=== PATIENT | female | born 1995 | race Caucasian/White ===

== ENCOUNTER 2017-05-27 16:26 | Emergency (ER) | payer BC ==
[2017-05-27 17:23] VITALS: BP 118/69
--- NOTE | 2017-05-27 17:57 | UC ---
HPI Wound/Suture Re-check - HPI Summary HPI Summary: 21 YEAR OLD FEMALE PRESENTS FOR STITCHES BETWEEN LEFT 4/5 TOE REMOVAL. LACERATION IS C/D/I (10 DAYS) - History Of Current Complaint Chief Complaint: UCWounds Stated Complaint: STITCHES REMOVAL Time Seen by Provider: 05/27/17 17:56 Hx Obtained From: Patient Hx Last Menstrual Period: 05/21/17 Onset/Duration: Lasting Days Severity: Mild Pain Scale Used: 0-10 Numeric - 0 - Allergies/Home Medications Allergies/Adverse Reactions: Allergies Allergy/AdvReac Type Severity Reaction Status Date / Time No Known Allergies Allergy Verified 05/27/17 17:23 Home Medications: Home Medications Acetaminophen [Acetaminophen Extra Stren] 1,000 mg PO Q6H PRN 05/27/17 [History Confirmed 05/27/17] PMH/Surg Hx/FS Hx/Imm Hx Previously Healthy: Yes - Surgical History Surgical History: None - Family History Known Family History: Negative: Blood Disorder - Social History Alcohol Use: Occasionally Substance Use Type: None Smoking Status (MU): Never Smoked Tobacco - Immunization History Most Recent Influenza Vaccination: none 2016 Review of Systems Constitutional: Negative Skin: Other - LEFT 4/5TH TOE WEB LACERATION WITH SUTURES Eyes: Negative ENT: Negative Respiratory: Negative Cardiovascular: Negative Gastrointestinal: Negative Genitourinary: Negative Motor: Negative Neurovascular: Negative Musculoskeletal: Negative Neurological: Negative Psychological: Negative All Other Systems Reviewed And Are Negative: Yes Physical Exam Triage Information Reviewed: Yes Vital Signs: Initial Vital Signs Temp 36.9 C 05/27/17 17:17 Pulse 60 05/27/17 17:17 Resp 18 05/27/17 17:17 BP 118/69 05/27/17 17:17 Pulse Ox 100 05/27/17 17:17 Vital Signs Reviewed: Yes Eye Exam: Normal ENT Exam: Normal Dental Exam: Normal Neck exam: Normal Neck: Positive: 1 Respiratory Exam: Normal Cardiovascular Exam: Normal Abdominal Exam: Normal Musculoskeletal Exam: Normal Neurological Exam: Normal Psychological Exam: Normal Skin: Positive: Other - LEFT 4/5TH TOE WEB LACERATION WITH SUTURES Course/Dx - Differential Dx - Laceration/Wound Provider Diagnoses: LEFT 4/5TH TOE WEB LACERATION WITH SUTURES. SUTURE REMOVAL. WOUND 2.5 TO 5 CM Discharge - Discharge Plan Condition: Stable Disposition: HOME Patient Education Materials: Stitches Removal (ED) Referrals: Non Staff,Doctor [Primary Care Provider] -
== END 2017-05-27 18:31 | disposition home or self-care (01) ==
LOC: UCCORT 16:26
DX: S91.312D Laceration without foreign body, left foot, subsequent encounter (principal); W45.8XXD Other foreign body or object entering through skin, subsequent encounter

== ENCOUNTER 2017-09-18 14:53 | Emergency (ER) | payer BC ==
[2017-09-18 15:22] VITALS: BP 119/72
--- NOTE | 2017-09-18 16:34 | RAD ---
Indication: Abdominal pain. CT of the abdomen and pelvis was performed without oral or IV contrast administration. Coronal and sagittal reconstructed images were obtained. Lung bases demonstrate no pleural fluid, nodules or masses. Heart is of normal size without evidence of pericardial effusion. Liver is normal in size. No focal lesions or intrahepatic duct dilatation is noted. The gallbladder demonstrates no calcified gallstones. No pericholecystic fluid or wall thickening is identified. The pancreas demonstrates no mass or pancreatic duct dilatation. The spleen is normal in size. No adrenal lesions are noted. The kidneys demonstrate no hydronephrosis. Aorta and inferior vena cava are unremarkable. No dilated loops of bowel are noted. There is stool throughout the colon. The appendix is visualized and normal. No pelvic adenopathy is noted. Urinary bladder is partially collapsed. IMPRESSION: No definite obstructive uropathy is noted. Normal appendix. Fecal stasis is present.
--- NOTE | 2017-09-18 16:48 | UC ---
Abdominal Pain Female HPI - HPI Summary HPI Summary: abdominal pain x 1 day pain is lower abd , no radiation + nausea , vomiting , no diarrhea, + constipation + fever, chills, - History of Current Complaint Chief Complaint: UCGeneralIllness Stated Complaint: ABDOMINAL/VOMITING Time Seen by Provider: 09/18/17 15:16 Hx Obtained From: Patient Hx Last Menstrual Period: 09/16/17 ?: No Onset/Duration: Gradual Onset, Lasting Days - 1, Still Present Timing: Constant Severity Initially: Moderate Severity Currently: Moderate Pain Intensity: 8 Location: Discrete At: RLQ, Discrete At: LLQ, Suprapubic Radiates: No Character: Aching, Cramping Aggravating Factor(s): Food Alleviating Factor(s): NPO Associated Signs and Symptoms: Positive: Fever, Constipation, Nausea, Vomiting. Negative: Diaphoresis, Cough, Chest Pain, Dizzy, Back Pain, Blood in Stool, Urinary Symptoms, Decreased Appetite, Vaginal Bleeding Allergies/Adverse Reactions: Allergies Allergy/AdvReac Type Severity Reaction Status Date / Time No Known Allergies Allergy Verified 05/27/17 17:23 Home Medications: Home Medications Ibuprofen 400 mg PO 09/18/17 [History] PMH/Surg Hx/FS Hx/Imm Hx Previously Healthy: Yes - Surgical History Surgical History: Yes Surgery Procedure, Year, and Place: WISDOM TEETH OUT - Family History Known Family History: Negative: Blood Disorder - Social History Alcohol Use: Occasionally Substance Use Type: None Smoking Status (MU): Never Smoked Tobacco - Immunization History Most Recent Influenza Vaccination: none 2017 Review of Systems Constitutional: Fever, Chills, Fatigue Skin: Negative Eyes: Negative ENT: Negative Respiratory: Negative Cardiovascular: Negative Gastrointestinal: Abdominal Pain, Vomiting, Nausea Genitourinary: Negative Motor: Negative Neurovascular: Negative Is Patient Immunocompromised?: No All Other Systems Reviewed And Are Negative: Yes Physical Exam Triage Information Reviewed: Yes Appearance: Well-Nourished, Pain Distress Vital Signs: Initial Vital Signs Temp 100.1 F 09/18/17 15:17 Pulse 94 09/18/17 15:17 Resp 16 09/18/17 15:17 BP 119/72 09/18/17 15:17 Pulse Ox 100 09/18/17 15:17 Vital Signs Reviewed: Yes Eyes: Positive: Conjunctiva Clear ENT: Positive: Normal ENT inspection, Hearing grossly normal, Pharynx normal Neck exam: Normal Neck: Positive: Supple, Nontender, No Lymphadenopathy Respiratory: Positive: Chest non-tender, Lungs clear, Normal breath sounds Cardiovascular: Positive: RRR, No Murmur, Pulses Normal Abdomen Description: Positive: Soft, Other: - tenderness left and right lower abdomen. Negative: CVA Tenderness (R), CVA Tenderness (L), Distended, Guarding Bowel Sounds: Positive: Present Psychological Exam: Normal Skin Exam: Normal Diagnostics - Laboratory Diagnostic Studies Completed/Ordered: CT ab/pelvic : IMPRESSION: No definite obstructive uropathy is noted. Normal appendix. Fecal stasis is. present. Abd Pain Female Course/Dx - Differential Dx/Diagnosis Provider Diagnoses: abdominal pain Discharge - Discharge Plan Condition: Stable Disposition: HOME Prescriptions: Naproxen 500 mg PO BID #20 tablet Ondansetron [Zofran Odt] 8 mg PO Q8H #9 tab Patient Education Materials: Acute Abdominal Pain (ED) Forms: *School Release Referrals: Non Staff,Doctor [Primary Care Provider] - 5 Days Additional Instructions: abd/pelvic CT : IMPRESSION: No definite obstructive uropathy is noted. Normal appendix. Fecal stasis is present. ? ovarian cyst constipation increase fluid, increase fiber, Zofran as needed for nausea and vomiting pain control with Naproxen as needed please go to ED if having sever pain / getting worse
--- NOTE | 2017-09-20 15:26 | UC ---
- Progress Note Progress Note: pt improved but requests note for school today
== END 2017-09-18 16:51 | disposition home or self-care (01) ==
LOC: UCCORT 14:53
DX: R10.32 Left lower quadrant pain (principal); R10.31 Right lower quadrant pain
CPT/HCPCS: 74176; 81003; 99212; G0463

== ENCOUNTER 2018-04-17 21:09 | Emergency (ER) | payer BC ==
[2018-04-17 21:30] VITALS: BP 115/72
--- NOTE | 2018-04-17 21:59 | UC ---
UC General HPI - HPI Summary HPI Summary: 3 days history of diffuse myalgias, with onset of emesis this morning, about 6 to 8 episodes. Diffuse pain in epigastrium and periumbilical area. Passed soft stool this morning, none since. Voided around 18:00 today but has felt lightheaded. NO fever. - History of Current Complaint Chief Complaint: UCGI Stated Complaint: VOMITING Time Seen by Provider: 04/17/18 21:48 Hx Obtained From: Patient Hx Last Menstrual Period: 3 wks ago Onset/Duration: Gradual Onset, Lasting Days Timing: Intermittent Episodes Lasting: Onset Severity: Moderate Pain Intensity: 4 Pain Location at: epigastrium Aggravating: intake of solids, vomited post pretzels. Associated Signs & Symptoms: Positive: Decreased Oral Intake, Headache - between eyes, Vomiting, Weakness - Allergy/Home Medications Allergies/Adverse Reactions: Allergies Allergy/AdvReac Type Severity Reaction Status Date / Time No Known Allergies Allergy Verified 04/17/18 21:21 Home Medications: Home Medications Cetirizine* [ZyrTEC 10 MG TAB*] 10 mg PO DAILY PRN 04/17/18 [History Confirmed 04/17/18] PMH/Surg Hx/FS Hx/Imm Hx Previously Healthy: Yes - Surgical History Surgical History: Yes Surgery Procedure, Year, and Place: WISDOM TEETH OUT - Family History Known Family History: Positive: None Negative: Blood Disorder - Social History Occupation: Student Lives: Dormitory/Roommates Alcohol Use: Occasionally Substance Use Type: None Smoking Status (MU): Never Smoked Tobacco - Immunization History Most Recent Influenza Vaccination: none 2017 Review of Systems Constitutional: Negative Skin: Negative Eyes: Negative ENT: Negative Respiratory: Cough - occasional Cardiovascular: Negative Gastrointestinal: Vomiting, Nausea Genitourinary: Negative Motor: Negative Neurovascular: Negative Musculoskeletal: Negative Neurological: Headache Psychological: Negative Is Patient Immunocompromised?: No All Other Systems Reviewed And Are Negative: Yes Physical Exam Triage Information Reviewed: Yes Appearance: Ill-Appearing - looks mildly unwell Vital Signs: Initial Vital Signs Temp 97.7 F 04/17/18 21:22 Pulse 65 04/17/18 21:22 Resp 26 04/17/18 21:22 BP 115/72 04/17/18 21:22 Pulse Ox 99 04/17/18 21:22 Eyes: Positive: Conjunctiva Clear ENT: Positive: Pharynx normal, Tonsillar swelling - left tonsil larger than right, but no erythema or exudate. Neck: Positive: Supple, Nontender, No Lymphadenopathy Respiratory: Positive: Lungs clear, Normal breath sounds Cardiovascular: Positive: RRR, No Murmur Abdominal Exam: Other - mild tenderness in epigastrium and lower quadrants without guarding or rebound tenderness. Abdomen Description: Positive: No Organomegaly, Soft Musculoskeletal Exam: Normal Neurological: Positive: Alert Psychological Exam: Normal Skin Exam: Normal Course/Dx - Course Course Of Treatment: ondansetron for nausea, rehydration, analgesics. - Differential Dx - Multi-Symptom Provider Diagnoses: viral gastritis Discharge - Sign-Out/Discharge Documenting (check all that apply): Patient Departure All imaging exams completed and their final reports reviewed: No Studies - Discharge Plan Condition: Stable Disposition: HOME Patient Education Materials: Gastritis (ED) Forms: *School Release Referrals: No Primary Care Phys,NOPCP [Primary Care Provider] - Additional Instructions: You have been given ondansetron, an antinauseant. Ensure that you take in additional fluids tonight, and some broth or yogurt to get some protein. Ensure increase in fluids for the next several days. - Billing Disposition and Condition Condition: STABLE Disposition: Home
[2018-04-17] MEDS ORDERED: Ondansetron TAB* 4 MG PO ONE (22:01)
[2018-04-17] MEDS ORDERED: Ondansetron ODT TAB* 4 MG ONE (22:03)
== END 2018-04-17 22:17 | disposition home or self-care (01) ==
LOC: UCCORT 21:09
DX: A08.4 Viral intestinal infection, unspecified (principal)
CPT/HCPCS: 99212; A9270-GY; G0463

== ENCOUNTER 2018-08-26 12:15 | Emergency (ER) | payer BC ==
[2018-08-26 12:25] VITALS: BP 132/72
--- NOTE | 2018-08-26 12:39 | UC ---
Throat Pain/Nasal Carlos HPI - HPI Summary HPI Summary: nasal congestion x 1 week plus sinus pain and pressure cough , sore throat for the past 3 days , high fever, chills and body aches - History of Current Complaint Chief Complaint: UCGeneralIllness Stated Complaint: SORE THROAT, FEVER, ACHY, CONGESTION Time Seen by Provider: 08/26/18 12:28 Hx Obtained From: Patient Hx Last Menstrual Period: 08/11/18 Onset/Duration: Gradual Onset, Lasting Days - 7, Still Present Severity: Severe Pain Intensity: 8 Cough: Nonproductive Associated Signs & Symptoms: Positive: Sinus Discomfort, Nasal Discharge, Fever. Negative: Dysphagia, FB Sensation, Drooling, Wheezing, Hoarseness, Vomiting, Rash - Allergies/Home Medications Allergies/Adverse Reactions: Allergies Allergy/AdvReac Type Severity Reaction Status Date / Time No Known Allergies Allergy Verified 04/17/18 21:21 Home Medications: Home Medications Dm/Acetaminophen/Doxylamine [Night Time Cold-Flu Rlf Sftgl] 1 each PO ONCE 08/26 [History Confirmed 08/26/18] PMH/Surg Hx/FS Hx/Imm Hx Previously Healthy: Yes - Surgical History Surgical History: Yes Surgery Procedure, Year, and Place: WISDOM TEETH OUT - Family History Known Family History: Positive: None Negative: Blood Disorder - Social History Alcohol Use: Occasionally Substance Use Type: None Smoking Status (MU): Never Smoked Tobacco - Immunization History Most Recent Influenza Vaccination: none 2016 Review of Systems All Other Systems Reviewed And Are Negative: Yes Constitutional: Positive: Fever, Chills, Fatigue Skin: Positive: Negative Eyes: Positive: Negative ENT: Positive: Sore Throat, Nasal Discharge Respiratory: Positive: Cough Cardiovascular: Positive: Negative Gastrointestinal: Positive: Negative Is Patient Immunocompromised?: No Physical Exam Triage Information Reviewed: Yes Appearance: Well-Appearing, No Pain Distress, Well-Nourished Vital Signs: Initial Vital Signs Temp 98 F 08/26/18 12:22 Pulse 109 08/26/18 12:22 Resp 16 08/26/18 12:22 BP 132/72 08/26/18 12:22 Pulse Ox 99 08/26/18 12:22 Vital Signs Reviewed: Yes Eye Exam: Normal Eyes: Positive: Conjunctiva Clear ENT: Positive: Normal ENT inspection, Hearing grossly normal, Pharyngeal erythema, Nasal congestion, Nasal drainage, TMs normal, Tonsillar swelling. Negative: TM bulging, TM dull, TM red, Tonsillar exudate Neck: Positive: Supple, Nontender, No Lymphadenopathy Respiratory: Positive: Chest non-tender, Lungs clear, Normal breath sounds, No respiratory distress Cardiovascular: Positive: No Murmur, Tachycardia Throat Pain/Nasal Course/Dx - Differential Dx/Diagnosis Provider Diagnosis: Strep pharyngitis Discharge - Sign-Out/Discharge Documenting (check all that apply): Patient Departure All imaging exams completed and their final reports reviewed: No Studies - Discharge Plan Condition: Stable Disposition: HOME Prescriptions: Amoxicillin PO (*) [Amoxicillin 875 MG (*)] 875 mg PO BID #20 tab Patient Education Materials: Strep Throat (ED) Referrals: No Primary Care Phys,NOPCP [Primary Care Provider] - If Needed - Billing Disposition and Condition Condition: STABLE Disposition: Home
[2018-08-26 12:47] LABS: Influenza A Molecular NEGATIVE (Negative); Influenza B Molecular NEGATIVE (Negative)
== END 2018-08-26 12:54 | disposition home or self-care (01) ==
LOC: UCCORT 12:15
DX: J02.0 Streptococcal pharyngitis (principal)
CPT/HCPCS: 87651; 99212; G0463

== ENCOUNTER 2018-11-18 14:43 | Emergency (ER) | payer BC ==
[2018-11-18 15:06] VITALS: BP 114/67
--- NOTE | 2018-11-18 15:26 | ED ---
Respiratory - HPI Summary HPI Summary: 23 yr old with runny nose, sore throat, cough with onset about two to three days ago. She feels like she has a fever. She denies SOB. She has room mates with URI symptoms. No other complaints. 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 - Surgical History Surgery Procedure, Year, and Place: WISDOM TEETH OUT Infectious Disease History: No Infectious Disease History: Reports: Hx of Known/Suspected MRSA Denies: Traveled Outside the [place] in Last 30 Days - Family History Known Family History: Positive: None Negative: Blood Disorder - Social History Occupation: Student Lives: Dormitory/Roommates Alcohol Use: Occasionally Substance Use Type: Reports: None Smoking Status (MU): Never Smoked Tobacco Review of Systems Constitutional: Negative Positive: Nasal Discharge Positive: Cough All Other Systems Reviewed And Are Negative: Yes Physical Exam Triage Information Reviewed: Yes Vital Signs On Initial Exam: Initial Vitals Temp Pulse Resp BP Pulse Ox 97.9 F 79 16 114/67 100 11/18/18 15:00 11/18/18 15:00 11/18/18 15:00 11/18/18 15:00 11/18/18 15:00 Vital Signs Reviewed: Yes Appearance: Positive: Well-Appearing, No Pain Distress Skin: Positive: Warm, Skin Color Reflects Adequate Perfusion Head/Face: Positive: Normal Head/Face Inspection Eyes: Positive: EOMI, ALLISNO ENT: Positive: Pharyngeal erythema, Nasal congestion, Nasal drainage, TMs normal Neck: Positive: Nontender Respiratory/Lung Sounds: Positive: Clear to Auscultation, Breath Sounds Present Cardiovascular: Positive: RRR. Negative: Murmur Abdomen Description: Negative: Distended Musculoskeletal: Positive: Strength/ROM Intact Neurological: Positive: Sensory/Motor Intact, Alert, Oriented to Person Place, Time, CN Intact II-III, Normal Gait, Speech Normal Psychiatric: Positive: Normal Diagnostics - Vital Signs Vital Signs Temp Pulse Resp BP Pulse Ox 11/18/18 15:00 97.9 F 79 16 114/67 100 - Laboratory Lab Statement: Any lab studies that have been ordered have been reviewed, and results considered in the medical decision making process. Disposition - Course Course Of Treatment: 23 yr old with URI. DC home in stable condition. Flu neg. - Diagnoses Provider Diagnoses: Upper respiratory infection Discharge - Sign-Out/Discharge Documenting (check all that apply): Patient Departure All imaging exams completed and their final reports reviewed: No Studies - Discharge Plan Condition: Good Disposition: HOME Patient Education Materials: Upper Respiratory Infection (ED) Referrals: No Primary Care Phys,NOPCP [Primary Care Provider] - [facility] [place] [facility] [Outside] - Billing Disposition and Condition Condition: GOOD Disposition: Home
[2018-11-18 15:42] LABS: Influenza A Molecular NEGATIVE (Negative); Influenza B Molecular NEGATIVE (Negative)
== END 2018-11-18 15:59 | disposition home or self-care (01) ==
LOC: UCCORT 14:43
DX: J06.9 Acute upper respiratory infection, unspecified (principal); R05 Cough; J45.909 Unspecified asthma, uncomplicated
CPT/HCPCS: 99211; G0463